=== PATIENT | male | born 1995 | race African-American/Black ===

== ENCOUNTER 2022-03-09 18:21 | Emergency (ER) | payer SELFPAY ==
[~2022-03-09] VITALS: Ht 170.2 cm; Wt 102.1 kg
== END 2022-03-09 18:47 | disposition home or self-care (01) ==
LOC: ER 18:34
DX: L05.91 Pilonidal cyst without abscess (principal)
CPT/HCPCS: 99282

== ENCOUNTER 2022-12-06 19:30 | Emergency (ER) | payer OTHER ==
[~2022-12-06] VITALS: Ht 170.2 cm; Wt 95.3 kg
[2022-12-06 20:11] VITALS: O2SAT 97
[2022-12-06] MEDS ORDERED: NAPROSYN500 MG PO (20:26)
[2022-12-06] MEDS ORDERED: CEFDINIR300 MG PO (20:26)
== END 2022-12-06 20:33 | disposition home or self-care (01) ==
LOC: FSED 19:40
DX: R30.0 Dysuria (principal); N34.2 Other urethritis; S37.39XA Other injury of urethra, initial encounter; W51.XXXA Accidental striking against or bumped into by another person, initial encounter; Y92.89 Other specified places as the place of occurrence of the external cause; I10 Essential (primary) hypertension
CPT/HCPCS: 81003; 99283